=== PATIENT | male | born 1995 | race Caucasian/White ===

== ENCOUNTER 2017-04-18 01:01 | Emergency (ER) | payer OTHER ==
[~2017-04-18] VITALS: Ht 195.6 cm; Wt 79.4 kg
[~2017-04-18 01:01] MED LIST: AMOXICILLIN 50500 MG PO; BACTRIM DS TAB1 EACH PO; BUSPIRONE HCL7.5 MG PO; CATAPRES-TTS 10.1 MG TD; COLACE100 MG PO; COZAAR 50 MG TA50 M2 PO; DOXYCYCLINE 10100 MG PO; HUMALOG100 UNIT/1 SQ; HYDROCODONE-AP1 EAC6 PO; IBUPROFEN 800800 M1 PO; LANTUS SC; NORCO 5-325 TA1 EACH PO; PERCOCET 5-3251 EACH PO; PROZAC 20 MG20 M1 PO; TRAMADOL 50 MG50 MG PO
[2017-04-18] MEDS ORDERED: BACTRIM DS TAB1 EACH PO (01:47)
== END 2017-04-18 02:06 | disposition home or self-care (01) ==
LOC: ER 01:01
DX: L05.01 Pilonidal cyst with abscess (principal); L03.317 Cellulitis of buttock; E11.9 Type 2 diabetes mellitus without complications; J45.909 Unspecified asthma, uncomplicated; F10.99 Alcohol use, unspecified with unspecified alcohol-induced disorder; Z88.8 Allergy status to other drugs, medicaments and biological substances; Z88.2 Allergy status to sulfonamides; Z79.4 Long term (current) use of insulin

== ENCOUNTER 2017-09-19 14:05 | Emergency (ER) | payer OTHER ==
[~2017-09-19] VITALS: Ht 190.5 cm; Wt 81.7 kg
[2017-09-19 14:08] VITALS: BP 122/77
[2017-09-19] MEDS ORDERED: CLEOCIN HCL150 MG PO (14:56)
[2017-09-19] MEDS ORDERED: SENNA-DOCUSATE1 EACH PO (14:56)
[2017-09-19] MEDS ORDERED: NORCO 5-325 TA1 EACH PO (14:56)
== END 2017-09-19 15:28 | disposition home or self-care (01) ==
LOC: ER 14:05
DX: L05.01 Pilonidal cyst with abscess (principal); E11.9 Type 2 diabetes mellitus without complications; J45.909 Unspecified asthma, uncomplicated; F17.210 Nicotine dependence, cigarettes, uncomplicated; Z79.4 Long term (current) use of insulin; Z88.1 Allergy status to other antibiotic agents; Z88.8 Allergy status to other drugs, medicaments and biological substances